=== PATIENT | female | born 1945 | race Caucasian/White ===

== ENCOUNTER 2017-08-04 11:29 | Outpatient (CLI) | payer MEDICARE, OTHER ==
--- NOTE | 2017-08-04 15:01 | RAD ---
PA AND LATERAL CHEST XRAY: DATE: 08/04/17. HISTORY: Dyspnea. COMPARISON: CT thorax on 07/01/12. FINDINGS: Postsurgical changes related to left mastectomy are noted. Surgical clips overlie the left axillary region. Surgical clips are also seen overlying the right upper quadrant. Cardiac silhouette and pulmonary vasculature are within normal limits. There is a small nodular dens ity overlying the lateral aspect right mid lung zone, and no pulmonary nodule or mass is seen on this CT exam in 2012. Lungs are otherwise clear. Vascular calcification is seen in the thoracic aorta. IMPRESSION: Nodular density overlying the lateral aspect right upper lung zone. Further evaluation with CT scan of thorax is recommended. CODE T POS: QUINTEN
== END 2017-08-04 11:30 | disposition home or self-care (01) ==
LOC: RAD 11:29
PROVIDERS: ATTEND Internal Medicine Critical Care Medicine
DX: R06.00 Dyspnea, unspecified (principal); R91.8 Other nonspecific abnormal finding of lung field
CPT/HCPCS: 71046

== ENCOUNTER 2017-08-12 12:06 | Outpatient (CLI) | payer MEDICARE, OTHER ==
--- NOTE | 2017-08-14 14:58 | PFT ---
PATIENT HISTORY: HEIGHT: 64 IN WEIGHT:148 SMOKER: NA HOW LONG: PACKS PER DAY PRODUCTIVE COUGH: LUNG DISEASE: PHYSICIAN INTERPRETATION FINAL REPORT: HISTORY OF PRESENT ILLNESS: Dr. Beatty this P[place] by [id number] DATE OF SERVICE 11/2017 The FEV1 is 1.91 liters which is 99% predicted. Forced vital capacity 2.43 liters which is 88% predicted. There is no change in spirometry after bronchodilatation. IMPRESSION: Normal study. Mill Tender Second Operator: RAY Pelts Skinner: RAY SHIN
== END 2017-08-12 12:07 | disposition home or self-care (01) ==
LOC: CP 12:06
PROVIDERS: ATTEND Internal Medicine Critical Care Medicine
DX: J47.9 Bronchiectasis, uncomplicated (principal)
CPT/HCPCS: 94060

== ENCOUNTER 2018-03-02 09:35 | Outpatient (CLI) | payer MEDICARE, OTHER ==
--- NOTE | 2018-03-02 13:34 | CT ---
CT OF THE ABDOMEN AND PELVIS WITHOUT IV CONTRAST: Indication: 73-year-old female with history of breast cancer and Hodkin's lymphoma with history of remission for many years. Comparison: CT chest, abdomen, and pelvis dated 03-04-17. FINDINGS: There is post-surgical change of a left mastectomy. There is mild bronchiectasis involving both lower lobes, right greater than left. The gallbladder is surgically absent. Unopacified pancreas, adrenal glands, and spleen appear within normal limits. Unopacified kidneys are unremarkable. No definite hepatic lesion is evident within the limitations of this noncontrast examination. The bladder is partially decompressed. There is scattered diverticula involving the colon without bony dence of active diverticulitis. There is nonvisualization of the normal appearing appendix; however, no definite secondary findings o f appendicitis is present. The uterus is surgically absent. No free fluid or pathologically enlarged lymph nodes are evident within the limitations of noncontrast exam. There are moderate calcifications involving abdominal pelvic vasculature. There is diffuse osteopenia. There is scattered degenerative and osteoarthritic change. No destructiv e osteolytic or osteoblastic lesion identified. IMPRESSION: No evidence of metastatic disease within the visualized abdomen or pelvis within the limitations of n oncontrast CT. POS: DONN
== END 2018-03-02 09:36 | disposition home or self-care (01) ==
LOC: BICCT 09:35
PROVIDERS: ATTEND Internal Medicine Hematology & Oncology
DX: C50.919 Malignant neoplasm of unspecified site of unspecified female breast (principal); C82.58 Diffuse follicle center lymphoma, lymph nodes of multiple sites
CPT/HCPCS: 74176

== ENCOUNTER 2018-08-10 09:46 | Outpatient (CLI) | payer MEDICARE, OTHER ==
--- NOTE | 2018-08-10 11:02 | RAD ---
2 VIEWS CHEST: Date: 08/10/18 PROVIDED CLINICAL HISTORY: Dyspnea. FINDINGS: Comparison with 08/04/17. Cardiac and mediastinal silhouette is unchanged in appearance. Vascular calcifications are again seen . Nodular density involving the lateral aspect of the right mid lung zone is unchanged. Surgical clip s project over the left axillary region. No focal consolidation, pleural fluid, or pneumothorax appar ent. IMPRESSION: Stable radiographic appearance of the chest. POS: TPC
== END 2018-08-10 09:47 | disposition home or self-care (01) ==
LOC: RAD 09:46
PROVIDERS: ATTEND Internal Medicine Critical Care Medicine
DX: R06.00 Dyspnea, unspecified (principal)
CPT/HCPCS: 71046

== ENCOUNTER 2019-01-05 09:56 | Outpatient (CLI) | payer MEDICARE, OTHER ==
[2019-01-05] MEDS ORDERED: ISOVUE-370 76%-LOCM 1 ML ONE (10:06)
--- NOTE | 2019-01-05 11:34 | CT ---
CT Abdomen Pelvis W WO con History: Abdominal pain Comparison: CT abdomen and pelvis 2017 Findings: Mild tubular bronchiectasis in the lower lobes with a early cystic component the right lowe r lobe, mildly progressed from the comparison examination. No pericardial effusion. Prior cholecystectomy. No intrahepatic or extrahepatic biliary dilatation. Pancreas is unremarkable a s well as the spleen and adrenal glands. No hydronephrosis. The aortoiliac contour is nonaneurysmal. Moderate diverticular disease of the sigmoid colon without a ctive current inflammation. There is also extensive diverticular disease of the transverse and descending colon as well as involvement of the ascending colon. No dilated loops of large or small bowel. No retroperitoneal periaortic adenopathy. The portal vein i s patent. Moderate degenerative changes lower lumbar spine. No lumbar spine compression deformity. Prior left mastectomy. Impression: 1. No acute inflammatory process within the abdomen or pelvis. 2. Extensive diverticular disease throughout the colon without active current inflammation. 3. Mildly progressive bronchiectasis in the right lower lobe with tubular and varicose component.
== END 2019-01-05 09:57 | disposition home or self-care (01) ==
LOC: BICCT 09:56
PROVIDERS: ATTEND Internal Medicine Gastroenterology
DX: R10.9 Unspecified abdominal pain (principal); K57.30 Diverticulosis of large intestine without perforation or abscess without bleeding; J47.9 Bronchiectasis, uncomplicated
CPT/HCPCS: 74178; 82565; Q9966

== ENCOUNTER 2019-07-26 10:26 | Outpatient (CLI) | payer MEDICARE, OTHER | END 2019-07-26 10:27 | disposition home or self-care (01) | LOC: CTENTCT 10:26 | PROVIDERS: ATTEND Otolaryngology Plastic Surgery within the Head & Neck | DX: J01.90 Acute sinusitis, unspecified (principal) | CPT/HCPCS: 70486 ==

== ENCOUNTER 2020-11-28 10:48 | Outpatient (CLI) | payer MEDICARE | END 2020-11-28 10:49 | disposition home or self-care (01) | LOC: BICMAMMO 10:48 | PROVIDERS: ATTEND Internal Medicine Hematology & Oncology | DX: Z12.31 Encounter for screening mammogram for malignant neoplasm of breast (principal); Z90.12 Acquired absence of left breast and nipple | CPT/HCPCS: 77063; 77067 ==

== ENCOUNTER 2021-12-05 12:52 | Outpatient (CLI) | payer MEDICARE, OTHER | END 2021-12-05 12:53 | disposition home or self-care (01) | LOC: BICMAMMO 12:52 | PROVIDERS: ATTEND Internal Medicine Hematology & Oncology | DX: Z12.31 Encounter for screening mammogram for malignant neoplasm of breast (principal); Z90.12 Acquired absence of left breast and nipple | CPT/HCPCS: 77063; 77067 ==

== ENCOUNTER 2022-07-01 11:06 | Outpatient (CLI) | payer MEDICARE, OTHER ==
[2022-07-01 12:56] LABS: #Eosinphils 0.1 10x3/uL (0.0-0.5); #Monocytes 0.5 10x3/uL (0.0-1.1); #Neutrophils 2.5 10x3/uL (1.5-8.4); %Basophils 0.7 % (0.0-2.0); %Eosinophils 1.8 % (0.0-6.0); %Lymphocytes 42.2 % (18.0-47.0); %Neutrophils 45.9 % (40.0-75.0); Hemoglobin 14.8 g/dL (12.0-15.5); Mean Corpuscular HGB CONC 35.2 g/dL (32.0-36.0); Mean Corpuscular Hemoglobin 32.9 pg (27.0-33.0); Mean Corpuscular Volume 93.6 fl (81.6-98.3); Mean Platelet Volume 10.2 fl (7.4-10.4); Platelet Count 178 10x3/uL (150-450); RBC Distribution Width 12.3 % (11.5-14.5); White Blood Cell (WBC) Count 5.5 10x3/uL (3.5-10.5)
[2022-07-01 13:00] LABS: INR-International Normal Ratio 0.9; Prothrombin Time 10.2 sec (9.5-12.1)
[2022-07-01 13:07] LABS: Anion Gap 15 mmol/L (10-20); BUN (Urea Nitrogen) 16 mg/dL (9.8-20.1); Calc. Creatinine Clearance 0 mL/min (70-130); Calcium 9.8 mg/dL (7.8-10.44); Carbon Dioxide 24 mmol/L (23-31); Chloride 108 mmol/L (98-107); Estimated GFR 77; Glucose 86 mg/dL (83-110); Potassium 3.8 mmol/L (3.5-5.1); Sodium 143 mmol/L (136-145)
== END 2022-07-01 11:07 | disposition home or self-care (01) ==
LOC: LABBT 11:06
PROVIDERS: ATTEND Orthopaedic Surgery
DX: Z01.812 Encounter for preprocedural laboratory examination (principal); R22.32 Localized swelling, mass and lump, left upper limb
CPT/HCPCS: 80048; 85025; 85610; 93005; 93010

== ENCOUNTER 2022-07-04 09:09 | Day surgery (SDC) | payer MEDICARE, OTHER ==
[2022-07-03 10:45] VITALS: BMI 24.0
[2022-07-04] MEDS ORDERED: Famotidine/PF 20 mg/2ml Vial ONE (11:14)
[2022-07-04] MEDS ORDERED: Midazolam HCl 2 mg/2 ml Vial ONE (12:14)
[2022-07-04] MEDS ORDERED: fentaNYL PF 100 MCG/2 ML SYRINGE ONE (12:14)
[2022-07-04] MEDS ORDERED: Sodium Chloride 0.9% 100 ML ONE (12:18)
[2022-07-04] MEDS ORDERED: CEFAZOLIN 2 GM VIAL ONE (12:18)
[2022-07-04] MEDS ORDERED: Dexamethasone 20 MG/5 ML VIAL ONE (12:29)
[2022-07-04] MEDS ORDERED: PROPOFOL 200 MG/20 ML VIAL ONE (12:29)
[2022-07-04] MEDS ORDERED: diphenhydrAMINE 50 MG/ML VIAL ONE (12:29)
[2022-07-04] MEDS ORDERED: Ondansetron PF 4 MG/2 ML Vial ONE (12:29)
[2022-07-04] MEDS ORDERED: Lidocaine 1% PF 5 ML VIAL ONE (12:29)
[2022-07-04] MEDS ORDERED: Bupivacaine/Epinephrine 0.25% 30 ML VIAL ONE (12:48)
== END 2022-07-04 14:50 | disposition home or self-care (01) ==
LOC: SDC 09:09
PROVIDERS: ATTEND Orthopaedic Surgery
PROC: 0RBM0ZZ Excision of Left Elbow Joint, Open Approach (ICD-10-PCS; principal; 2022-07-04)
DX: M25.822 Other specified joint disorders, left elbow (principal); M70.22 Olecranon bursitis, left elbow; I10 Essential (primary) hypertension; K21.9 Gastro-esophageal reflux disease without esophagitis; Z79.899 Other long term (current) drug therapy; Z88.1 Allergy status to other antibiotic agents; Z88.2 Allergy status to sulfonamides; Z88.5 Allergy status to narcotic agent; Z88.8 Allergy status to other drugs, medicaments and biological substances; Z91.011 Allergy to milk products
CPT/HCPCS: 88304; J1100; J1200; J2250; J2405; J2704; J3490; S0028

== ENCOUNTER 2022-12-17 11:40 | Outpatient (CLI) | payer MEDICARE, OTHER | END 2022-12-17 11:41 | disposition home or self-care (01) | LOC: BICMAMMO 11:40 | PROVIDERS: ATTEND Internal Medicine Hematology & Oncology | DX: Z12.31 Encounter for screening mammogram for malignant neoplasm of breast (principal); Z90.12 Acquired absence of left breast and nipple | CPT/HCPCS: 77063; 77067 ==

== ENCOUNTER 2024-03-16 10:02 | Outpatient (CLI) | payer MEDICARE, OTHER | END 2024-03-16 10:03 | disposition home or self-care (01) | LOC: BICMAMMO 10:02 | PROVIDERS: ATTEND Internal Medicine | DX: Z78.0 Asymptomatic menopausal state (principal); M85.851 Other specified disorders of bone density and structure, right thigh; M85.852 Other specified disorders of bone density and structure, left thigh | CPT/HCPCS: 77080 ==

== ENCOUNTER 2024-06-16 08:31 | Outpatient (CLI) | payer MEDICARE, OTHER ==
[2024-06-16] MEDS ORDERED: Magnevist 469MG/ML 20 ML VIAL ONE (16:02)
== END 2024-06-16 08:32 | disposition home or self-care (01) ==
LOC: MRI 08:31
PROVIDERS: ATTEND Otolaryngology Plastic Surgery within the Head & Neck
DX: H90.3 Sensorineural hearing loss, bilateral (principal); R90.82 White matter disease, unspecified; J34.1 Cyst and mucocele of nose and nasal sinus
CPT/HCPCS: 70553; 76376

== ENCOUNTER 2025-01-20 12:25 | Outpatient (CLI) | payer MEDICARE, OTHER | END 2025-01-20 12:26 | disposition home or self-care (01) | LOC: BICULT 12:25 | PROVIDERS: ATTEND Nurse Practitioner Family | DX: C82.58 Diffuse follicle center lymphoma, lymph nodes of multiple sites (principal); Z85.3 Personal history of malignant neoplasm of breast | CPT/HCPCS: 76999 ==

== ENCOUNTER 2025-04-05 09:42 | Outpatient (CLI) | payer MEDICARE, OTHER | END 2025-04-05 09:43 | disposition home or self-care (01) | LOC: RAD 09:42 | PROVIDERS: ATTEND Internal Medicine Critical Care Medicine | DX: R06.00 Dyspnea, unspecified (principal) | CPT/HCPCS: 71046 ==